=== PATIENT | female | born 2000 | race Caucasian/White ===

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

== ENCOUNTER 2023-02-01 00:27 | Inpatient (IN) | payer OTHER ==
[2023-02-01] MEDS ORDERED: ELECTROLYTE-148 SOLN 1,000 ML IV SCH (01:00)
[2023-02-01 01:51] LABS: BASO % 0.3 % (0-2.0); EOS % 0.5 % (0-4.5); HEMATOCRIT 39.3 % (32.4-45.2); HEMOGLOBIN 13.6 GM/dL (10.7-15.3); LYMPH % 11.2 % (8-40); MCH 28.6 pg (25.7-33.7); MCHC 34.6 g/dl (32.0-36.0); MEAN CELL VOLUME 82.5 fl (80-96); MEAN PLT VOLUME 8.5 fl (7.5-11.1); MONO % 4.6 % (3.8-10.2); NEUT % 83.4 % (42.8-82.8); PLATELET COUNT 227 10^3/uL (134-434); RBC 4.76 M/mm3 (3.60-5.2); RDW 14.7 % (11.6-15.6); WHITE BLOOD COUNT 13.2 K/mm3 (4.0-10.0)
[2023-02-01 02:04] VITALS: BMI 34.2
[2023-02-01 02:05] LABS: INR 0.94 (0.83-1.09); PROTHROMBIN TIME (PATIENT) 10.9 SEC (9.7-13.0)
[2023-02-01 02:08] LABS: ACTIVATED PTT 27.5 SECONDS (25.2-36.5)
[2023-02-01 02:09] LABS: POTASSIUM 4.2 mmol/L (3.5-5.1)
[2023-02-01 02:11] LABS: CALCIUM 8.9 mg/dL (8.5-10.1)
[2023-02-01 02:15] LABS: CREATININE 0.6 mg/dL (0.55-1.3)
[2023-02-01] MEDS ORDERED: FENTANYL/BUPIVACAINE/NS/PF - PCEA - 50 ML DISP.SYRIN EP ONE ×5 (02:53→15:34)
[2023-02-01] MEDS ORDERED: NALOXONE HCL 0.4 MG/ML VIAL IVPUSH PRN (03:23)
[2023-02-01] MEDS ORDERED: FENTANYL/BUPIVACAINE/NS/PF - PCEA - 50 ML DISP.SYRIN EP SCH ×2 (03:30→03:57)
[2023-02-01] MEDS ORDERED: OXYTOCIN 30 UNITS in 0.9% NS 30 UNIT/500 ML INFUS.BAG IVPB ONE ×2 (10:05→19:30)
[2023-02-01] MEDS ORDERED: OXYTOCIN 30 UNITS in 0.9% NS 30 UNIT/500 ML INFUS.BAG IVPB SCH (11:34)
[2023-02-01] MEDS ORDERED: FENTANYL CITRATE/PF 50 MCG/ML VIAL ONE ×2 (12:13→19:29)
[2023-02-01] MEDS ORDERED: ONDANSETRON 4 MG/2 ML VIAL ONE (19:26)
[2023-02-01] MEDS ORDERED: ceFAZolin SODIUM 1 GM VIAL ONE (19:26)
[2023-02-01] MEDS ORDERED: DEXAMETHASONE SOD PHOSPHATE 4 MG/1 ML VIAL ONE (19:26)
[2023-02-01] MEDS ORDERED: PHENYLEPHRINE HCL 10 MG/1 ML SINGLE DOSE VIAL ONE (19:26)
[2023-02-01] MEDS ORDERED: METOCLOPRAMIDE HCL INJECTION 10 MG/2 ML VIAL ONE (19:26)
[2023-02-01] MEDS ORDERED: LIDO 2%/EPI 1:200000 PRESRVFRE (20 ML SDVIAL) ONE (19:30)
[2023-02-01] MEDS ORDERED: morphine SULFATE/PF 1 MG/2 ML (2cc Syringe - QUVA) EP ONE (20:25)
[2023-02-01] MEDS ORDERED: KETOROLAC TROMETHAMINE 30 MG/1 ML VIAL ONE (20:42)
[2023-02-01 21:01] LABS: CORD BASE EXCESS -2.1 mmol/L (0-2); CORD HCO3 23.7 mmHg (20-29); CORD PCO2 44.4 mmHg (30-78); CORD pH 7.346 (7.14-7.44)
[2023-02-01 21:03] LABS: CORD HCO3 28.4 mmHg (20-29); CORD PCO2 64.9 mmHg (30-78); CORD pH 7.259 (7.14-7.44)
[2023-02-01] MEDS ORDERED: METHYLERGONOVINE MALEATE 0.2 MG/1 ML AMP IM PRN (21:36)
[2023-02-01] MEDS ORDERED: OXYTOCIN 20 UNITS in 0.9% NS 20 UNIT/1,000 ML INFUS.BAG IV ONE (21:42)
[2023-02-01] MEDS: OXYTOCIN 20 UNITS in 0.9% NS 20 UNIT/1,000 ML INFUS.BAG IV SCH (21:45)
[2023-02-01] MEDS ORDERED: ONDANSETRON 4 MG/2 ML VIAL IVPUSH PRN (21:49)
[2023-02-02] MEDS ORDERED: ceFAZolin 2 GRAM PREMIX BAG IVPB SCH (02:00)
[2023-02-02] MEDS: CEFAZOLIN SODIUM 2 GM in DEXTROSE 5%-WATER 100 ML IVPB SCH ×3 (02:01→19:35)
[2023-02-02] MEDS: OXYTOCIN 20 UNITS in 0.9% NS 20 UNIT/1,000 ML INFUS.BAG IV SCH (05:54)
[2023-02-02] MEDS: IBUPROFEN 600 MG TABLET (FP) PO PRN ×3 (05:54→19:34)
[2023-02-02] MEDS: SIMETHICONE 80 MG TAB.CHEW (FP) PO PRN ×3 (05:54→19:35)
[2023-02-02 08:28] LABS: BASO % 0.1 % (0-2.0); EOS % 0.1 % (0-4.5); HEMATOCRIT 26.4 % (32.4-45.2); HEMOGLOBIN 9.2 GM/dL (10.7-15.3); LYMPH % 7.6 % (8-40); MCH 28.9 pg (25.7-33.7); MCHC 34.8 g/dl (32.0-36.0); MEAN PLT VOLUME 8.3 fl (7.5-11.1); MONO % 6.3 % (3.8-10.2); NEUT % 85.9 % (42.8-82.8); PLATELET COUNT 160 10^3/uL (134-434); RBC 3.18 M/mm3 (3.60-5.2); RDW 14.6 % (11.6-15.6); WHITE BLOOD COUNT 11.1 K/mm3 (4.0-10.0)
[2023-02-02] MEDS: ENOXAPARIN NA (PORCINE) 40 MG/0.4 ML DISP.SYRIN SQ SCH (10:34)
[2023-02-02] MEDS: ACETAMINOPHEN 325 MG TABLET (FP) PO PRN ×2 (15:24→21:04)
[2023-02-02] MEDS: oxyCODONE HCL 5 MG TABLET PO PRN (18:19)
[2023-02-02] MEDS ORDERED: BISACODYL 10 MG SUPP.RECT RC PRN (21:36)
[2023-02-03] MEDS: ACETAMINOPHEN 325 MG TABLET (FP) PO PRN ×5 (01:00→21:12)
[2023-02-03] MEDS: SIMETHICONE 80 MG TAB.CHEW (FP) PO PRN ×5 (01:00→21:12)
[2023-02-03] MEDS: oxyCODONE HCL 5 MG TABLET PO PRN (09:38)
[2023-02-03] MEDS: ENOXAPARIN NA (PORCINE) 40 MG/0.4 ML DISP.SYRIN SQ SCH (09:39)
[2023-02-03] MEDS: IBUPROFEN 600 MG TABLET (FP) PO PRN ×2 (11:36→16:22)
[2023-02-04] MEDS: IBUPROFEN 600 MG TABLET (FP) PO PRN ×2 (00:07→11:06)
[2023-02-04] MEDS: SIMETHICONE 80 MG TAB.CHEW (FP) PO PRN ×2 (00:07→07:16)
[2023-02-04] MEDS: oxyCODONE HCL 5 MG TABLET PO PRN ×2 (02:16→07:15)
[2023-02-04 06:14] LABS: BASO % 0.2 % (0-2.0); EOS % 1.6 % (0-4.5); HEMATOCRIT 25.3 % (32.4-45.2); HEMOGLOBIN 8.9 GM/dL (10.7-15.3); LYMPH % 12.5 % (8-40); MCH 29.8 pg (25.7-33.7); MEAN PLT VOLUME 8.3 fl (7.5-11.1); MONO % 4.6 % (3.8-10.2); NEUT % 81.1 % (42.8-82.8); PLATELET COUNT 193 10^3/uL (134-434); RBC 2.98 M/mm3 (3.60-5.2); RDW 14.8 % (11.6-15.6)
[2023-02-04 09:20] VITALS: BP 115/69; PULSE 102; RESP 20; TEMP 97.7
[2023-02-04] MEDS: ACETAMINOPHEN 325 MG TABLET (FP) PO PRN (09:34)
[2023-02-04] MEDS: ENOXAPARIN NA (PORCINE) 40 MG/0.4 ML DISP.SYRIN SQ SCH (10:13)
== END 2023-02-04 12:00 | disposition home or self-care (01) | DRG 788 ==
LOC: JDEL 00:27 → JLDR 01:04 → J3W 23:42
PROVIDERS: ADMIT Obstetrics & Gynecology; ATTEND Obstetrics & Gynecology
PROC: 10D00Z1 Extraction of Products of Conception, Low, Open Approach (ICD-10-PCS; principal; 2023-02-01)
DX: O62.0 Primary inadequate contractions (principal); O33.9 Maternal care for disproportion, unspecified; Z3A.38 38 weeks gestation of pregnancy; Z37.0 Single live birth
CPT/HCPCS: 36415; 36600; 80048; 82803; 85025; 85610; 85730; 86780; 86850; 86900; 86901; 88307-TC